=== PATIENT | male | born 1965 | race Caucasian/White ===

== ENCOUNTER 2019-11-08 00:36 | Emergency (ER) | payer OTHER, SELFPAY ==
[2019-11-08 00:49] VITALS: BP 179/119; PULSE 68; RESP 15; TEMP 36.8; O2SAT 99; BMI 36.6
--- NOTE | 2019-11-08 01:10 | PC.NURSE ---
Alcaine Opthalmic & Fluoroscein placed at bedside along with a cotton tip swab & the Hilliard lamp.
--- NOTE | 2019-11-08 01:35 | PC.NURSE ---
Flushed pt's eye with normal saline. Was able to flush out black speck from eye. Pt states relief with removal.
[2019-11-08 01:53] VITALS: BP 139/83; PULSE 64; RESP 16; O2SAT 99
[2019-11-08] MEDS: FLUORESCEIN 1 MG STRIP EYE-LEFT (02:00)
[2019-11-08] MEDS: PROPARACAINE 0.5% OPHTH SOL 1 DROPS EYE-LEFT (02:00)
--- NOTE | 2019-11-08 02:17 | ED_ITS ---
HPI - Eye Problem General Chief complaint: Eye Problems Stated complaint: something in left eye/cant get it out Time Seen by Provider: 11/08/19 01:56 Source: patient Mode of arrival: Family Vehicle Limitations: no limitations History of Present Illness HPI Narrative: 54-year-old male comes to the emergency department with complaint of foreign body in his left eye. Patient states that he went to bed felt fine woke up and saw something black in his eye in the upper left-hand corner of the left eye. Patient states that it was very irritating. He tried rinsing it out with tap water without success. No vision changes. He wears reader is a but no glasses or contacts. He does not have an security public safety officer he follows with regularly denies any interventions to his eye. He had his eye flush to nursing was able to remove it he feels much better immediately afterwards. He denies any other symptoms at this time. Related Data Allergies Allergy/AdvReac Type Severity Reaction Status Date / Time Penicillins [PENICILLINS] Allergy Unknown Unverified 11/08/19 01:15 Review of Systems Review of Systems ROS Unobtainable: All systems reviewed & are unremarkable except as noted in HPI and below Patient History Social History Smoking Status: Never smoker Smoking Status: Never smoker Substance Use Type: does not use Exam Narrative Exam Narrative: GEN: well nourished, well appearing male, alert and oriented x 3, patient appears to be in mild distress. HEENT: Atraumatic, pupils are equal round reactive to light, extraocular movements are intact, nares are clear. Visual acuity: right [20/20], left [20/20] without correction. General: no globe trauma Eyelids: normal inspection, eyelids everted for exam on left. Conjunctiva/Sclera: normal inspection Corneas: normal inspection on right, examined with fluroscein on left, there is some punctate uptake within the eye itself in the sclera generalized no uptake noted over the cornea. EOM: intact, no palsy/entrapment Pupils: PERRL, normal accomadation, pupil normal Anterior Chambers: normal inspection, no hypema MSCL: Non-tender, normal gait NEURO:CN 2-12 intact, sensation normal Initial Vital Signs Initial Vital Signs: Vital Signs Temperature 98.3 F 11/08/19 00:49 Pulse Rate 68 11/08/19 00:49 Respiratory Rate 15 11/08/19 00:49 Blood Pressure 179/119 H 11/08/19 00:49 Pulse Oximetry 99 11/08/19 00:49 Course Orders Ordered: Discontinued Medications Fluorescein Sodium (Ful-Evita) 1 mg EYE-LEFT NOW ONE Stop: 11/08/19 00:47 Fluorescein Sodium (Ful-Evita) 1 mg EYE-LEFT NOW ONE Stop: 11/08/19 00:48 Ofloxacin (Ocuflox) 1 bottle MISC SEEINSTR ONE Stop: 11/08/19 02:12 Proparacaine HCl (Parcaine 0.5% Ophth Marija) 1 drops EYE-LEFT NOW ONE Stop: 11/08/19 00:47 Vital Signs Vital signs: Vital Signs - 8 hr 11/08/19 00:49 11/08/19 01:53 Temperature 98.3 F Pulse Rate 68 64 Respiratory Rate 15 16 Blood Pressure 179/119 H Blood Pressure [Right Arm] 139/83 Pulse Oximetry 99 99 MDM - Eye Problem MDM Narrative Medical decision making narrative: Foreign body was removed by nursing visualized here in the department. Patient has 2020 vision bilaterally 2024 on the right and 2020 in the left. Patient has some punctate uptake through the sclera throughout but none over the cornea appreciated. Was given a short course of antibiotic drops. Given referral for Ophthalmology if he is having any continuing symptoms but if asymptomatic with no other issues. Discharge Plan Departure Patient Disposition: Home Clinical Impression: Foreign body in eyeball, left Qualifiers: Encounter type: initial encounter Qualified Code(s): S05.52XA - Penetrating wound with foreign body of left eyeball, initial encounter Instructions: DI for Foreign Body in the Eye Activity Restrictions/Additional Instructions: Follow-up with ophthalmology in the next 2-3 days if you have any pain or discomfort in your eye. Included below is referral for Ophthalmology if needed. Use antibiotic eye drops, 2 drops to the left eye every 4 hours while awake for a total 4 times daily. Return to the ER for decreased vision, increasing pain, redness, swelling, discharge or any other new or concerning symptoms. Referrals: Capo Paris MD [Physician] - Unique Scott PA-C [Primary Care Provider] -
--- NOTE | 2019-11-08 02:29 | PC.NURSE ---
Dispensed Ofloxacin opthalmic drops. Instructions 2 drops every 4 hours while awake x 4 days. To see ophthalomogist as needed.
[2019-11-08] MEDS: OFLOXACIN 0.3% OPHTH PREPACK 1 BOTTLE MISC (02:33)
== END 2019-11-08 02:27 | disposition home or self-care (01) ==
PROVIDERS: Emergency Provider Emergency Medicine; Family Provider Physician Assistant Medical; PCP Physician Assistant Medical
DX: S05.52XA Penetrating wound with foreign body of left eyeball, initial encounter (principal)
CPT/HCPCS: 99282

== ENCOUNTER → 2020-01-14 14:34 | Outpatient (CLI) | payer OTHER, SELFPAY ==
--- NOTE | 2020-01-14 15:49 | PM.TREADMILL ---
Cardiac Stress Test Report Referral & Results Date Patient Seen: 01/14/20 Time Patient Seen: 15:50 Requesting provider: Husam Solitario Indication: hypertension Rest ECG: sinus rhythm Procedure Note: Standard Ander exercise , 7:37, 8.3 METS Fair exercise capacity, ARCADIO +21% due to knee pain Normal hemodynamic respone to exercise No chest pain or anginal symptoms Exercise ECG difficulty to interpret due to artifact, no significant ST changes; no ectopy Impression: Equivocal exercise stress test Please note: Actual ECG tracings can be found in the PACS system.
== END ==
PROVIDERS: Family Provider Physician Assistant Medical; PCP Physician Assistant Medical; Referring Provider Internal Medicine Cardiovascular Disease; Visit Provider Internal Medicine Cardiovascular Disease
DX: R00.2 Palpitations (principal); I10 Essential (primary) hypertension
CPT/HCPCS: 93017

== ENCOUNTER → 2020-01-24 11:02 | Outpatient (CLI) | payer OTHER, SELFPAY ==
--- NOTE | 2020-01-24 | DI.RAD.S_ITS ---
PROCEDURE: XR KNEE LT 3V INDICATIONS: KNEE PAIN LT TECHNIQUE: 3 views of the knee were acquired. COMPARISON: None. FINDINGS: Bones: No fractures or dislocations. No suspicious bony lesions. Mild medial compartment joint space narrowing, no effusion or loose body found. Soft tissues: No joint effusion. No suspicious soft tissue calcifications. 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 Dictated by: Yobani Cooper M.D. on 01/24/2020 at 16:13 Approved by: Yobani Cooper M.D. on 01/24/2020 at 16:13
== END ==
PROVIDERS: Family Provider Physician Assistant Medical; PCP Physician Assistant Medical; Referring Provider Physician Assistant Medical; Visit Provider Physician Assistant Medical
DX: M25.562 Pain in left knee (principal); M17.12 Unilateral primary osteoarthritis, left knee
CPT/HCPCS: 73562